=== PATIENT | male | born 1955 | race Caucasian/White ===

== ENCOUNTER 2022-08-07 08:47 | Outpatient (CLI) | payer MEDICARE ==
[2022-08-07] MEDS ORDERED: Iopamidol 370 76% 100 ML VIAL FS ONE (08:48)
== END 2022-08-07 08:48 | disposition home or self-care (01) ==
LOC: BURCT 08:47
PROVIDERS: ATTEND Family Medicine
DX: R51.9 Headache, unspecified (principal); R22.0 Localized swelling, mass and lump, head; G93.6 Cerebral edema
CPT/HCPCS: 70470; Q9967